=== PATIENT | female | born 1950 | race Caucasian/White ===

== ENCOUNTER 2021-11-28 14:10 | Inpatient (IN) | payer MEDICARE ==
[~2021-11-28] VITALS: Ht 170.2 cm; Wt 109.1 kg
[~2021-11-28 14:10] MED LIST: ATOR40TA71 PO; FLUO40CA10 PO; LISI1TAB51 PO
[2021-11-28 14:37] LABS: BASOPHILS % (AUTO) 0.4 % (0-1); EOSINOPHILS % (AUTO) 0.1 % (0-6); HEMATOCRIT 45.6 % (35.0-45.0); HEMOGLOBIN 15.2 g/dl (12.0-16.0); LYMPHOCYTES # (AUTO) 0.9 X10'3 (1.1-4.8); LYMPHOCYTES % (AUTO) 13.2 % (21-51); MEAN CORPUSCULAR HEMOGLOBIN 31.7 PG (27.0-31.0); MEAN CORPUSCULAR HGB CONC 33.4 g/dL (33.0-36.5); MEAN CORPUSCULAR VOLUME 94.8 FL (78-98); MEAN PLATELET VOLUME 8.1 FL (7.4-10.4); MONOCYTES # (AUTO) 0.5 X10'3 (0-0.9); MONOCYTES % (AUTO) 7.4 % (2-12); NEUTROPHILS # (AUTO) 5.3 X10'3 (1.8-7.7); NEUTROPHILS % (AUTO) 78.9 % (42-75); PLATELET COUNT 208 X10'3 (140-440); RED CELL DISTRIBUTION WIDTH 16.4 % (11.5-14.5); WHITE BLOOD COUNT 6.7 X10'3 (4.5-11.0)
[2021-11-28 14:49] LABS: D-DIMER 1.17 MG/L FEU (0-0.50)
[2021-11-28 14:51] LABS: ALANINE AMINOTRANSFERASE 18 U/L (12-78); ALBUMIN 3.5 G/DL (3.4-5.0); ALBUMIN/GLOBULIN RATIO 0.9 (1.1-1.5); ALKALINE PHOSPHATASE 110 IU/L (46-116); ANION GAP 11 (8-16); ASPARTATE AMINO TRANSFERASE 36 U/L (10-37); BILIRUBIN,TOTAL 1.3 MG/DL (0.1-1.0); BLOOD UREA NITROGEN 13 MG/DL (7-18); BUN/CREATININE RATIO 13.1 (6.6-38.0); CALCIUM 9.2 MG/DL (8.5-10.1); CHLORIDE 86 MMOL/L (99-107); CREATININE 0.99 MG/DL (0.40-0.90); GLUCOSE 96 MG/DL (70-104); POTASSIUM 3.2 MMOL/L (3.5-5.1); SODIUM 128 MMOL/L (135-145); TOTAL CARBON DIOXIDE 30.6 MMOL/L (24-32); TOTAL PROTEIN 7.3 G/DL (6.4-8.2); eGFR 55 ML/MIN
[2021-11-28] MEDS ORDERED: furosemide 10 MG/1 ML 10ml inj IV ONE (14:55)
[2021-11-28] MEDS ORDERED: diltiazem 5mg/ml 5ml inj. IV ONE ×2 (14:55→18:25)
[2021-11-28] MEDS ORDERED: potassium Cl 20 mEq SR tablet PO STA (15:28)
[2021-11-28] MEDS ORDERED: TETanus/Pertussis (Acell)/Diphther VAC/PF (Tdap-Adult) 0.5ml syringe IMVAC ONE (15:30)
[2021-11-28] MEDS ORDERED: iohexol 350MG/ML 100ml bottle IV ONE (16:04)
--- NOTE | 2021-11-28 17:32 | NUR ---
2nd troponin 89
--- NOTE | 2021-11-28 18:44 | NUR ---
Recycled blood pressure during cardizem administration. Pt has recieved about 10mg of cardizem and blood pressure reading of 77/63 by auto cuff. Adult size cuff located on the left forearm. Cuff repositioned to left upper arm. Cycled blood pressure, reading of 85/62. Pt pink, alert, no acute/resp distress. Advised ERP. Will hold cardizem. Provider states he will order digoxin after he speaks with the hospitalist.
--- NOTE | 2021-11-28 18:51 | NUR ---
Pt pink, alert, no acute/resp distress. Repeat blood pressure 97/53.
[2021-11-28] MEDS ORDERED: digoxin 250mcg/ml 2ml ampule IV ONE ×2 (19:20→20:30)
[2021-11-28 19:50] LABS: CLARITY,URINE CLEAR (Clear); COLOR,URINE YELLOW (Yellow); GLUCOSE, URINE NEGATIVE (Neg); KETONES,URINE NEGATIVE (Neg); LEUKOCYTE ESTERASE ,URINE NEGATIVE (Neg); NITRITES, URINE NEGATIVE (Neg); OCCULT BLOOD,URINE NEGATIVE (Neg); PH,URINE 6.5 (4.8-8.0); PROTEIN,URINE NEGATIVE (Neg); UROBILINOGEN,URINE 0.2 E.U/dL (0.2-1.0)
[2021-11-28 19:54] LABS: UA COLLECTION TYPE CLN CATCH MIDSTREAM
[2021-11-28] MEDS ORDERED: morphine 2 MG/ML inj. syringe IV PRN ×2 (20:10)
[2021-11-28] MEDS ORDERED: magnesium 2GM in 50ml NS 50 ML IV PRN (20:10)
[2021-11-28] MEDS ORDERED: acetaminophen 325mg tablet PO PRN ×2 (20:10)
[2021-11-28] MEDS ORDERED: ondansetron/PF 4mg/2ml inj IV PRN (20:10)
[2021-11-28] MEDS ORDERED: magnesium 4gm in 100ml NS 100 ML IV PRN (20:10)
[2021-11-28] MEDS ORDERED: magnesium hydroxide 30ml (MOM) UD suspension PO PRN (20:10)
[2021-11-28] MEDS ORDERED: mag hydrox/Alum hydrox/simeth 30ml oral suspension PO PRN (20:10)
[2021-11-28] MEDS ORDERED: potassium Cl 20 mEq SR tablet PO PRN (20:10)
[2021-11-28] MEDS ORDERED: magnesium Cl slow-release 64mg tablet PO PRN (20:10)
[2021-11-28] MEDS ORDERED: potassium CL 10mEq/100ml bag 100 ML IV PRN (20:10)
[2021-11-28 20:30] LABS: MAGNESIUM 1.9 MG/DL (1.5-2.4)
[2021-11-28] MEDS ORDERED: enoxaparin 30mg/0.3ml syringe SUBCUT ONE (20:30)
[2021-11-28] MEDS ORDERED: enoxaparin 80mg/0.8ml syringe SUBCUT ONE (20:30)
[2021-11-28 20:31] LABS: POTASSIUM 3.5 MMOL/L (3.5-5.1)
[2021-11-28] MEDS: furosemide 20 MG/2 ML vial IV SCH ×2 (20:52→21:05)
[2021-11-28] MEDS: diltiazem 30mg tablet PO SCH ×2 (21:00→21:08)
[2021-11-28 22:00] VITALS: BP 103/52
--- NOTE | 2021-11-28 22:00 | NUR ---
Patient transfer from ER in a stable condition vital signs stable oriented to room bed in lower position will continue to monitor and report changes
[2021-11-29] VITALS (8 sets, daily range): BP systolic 75–108; BP diastolic 49–84
[2021-11-29 06:15] LABS: BASOPHILS % (AUTO) 0.7 % (0-1); EOSINOPHILS % (AUTO) 0.3 % (0-6); HEMATOCRIT 42.2 % (35.0-45.0); LYMPHOCYTES # (AUTO) 1.3 X10'3 (1.1-4.8); LYMPHOCYTES % (AUTO) 18.3 % (21-51); MEAN CORPUSCULAR HEMOGLOBIN 31.3 PG (27.0-31.0); MEAN CORPUSCULAR HGB CONC 33.2 g/dL (33.0-36.5); MEAN CORPUSCULAR VOLUME 94.1 FL (78-98); MEAN PLATELET VOLUME 8.5 FL (7.4-10.4); MONOCYTES # (AUTO) 0.9 X10'3 (0-0.9); MONOCYTES % (AUTO) 13.3 % (2-12); NEUTROPHILS # (AUTO) 4.7 X10'3 (1.8-7.7); NEUTROPHILS % (AUTO) 67.4 % (42-75); PLATELET COUNT 196 X10'3 (140-440); RED BLOOD COUNT 4.48 X10'6 (4.20-5.60)
[2021-11-29 06:31] LABS: ALBUMIN 2.8 G/DL (3.4-5.0); ANION GAP 7 (8-16); BLOOD UREA NITROGEN 12 MG/DL (7-18); CALCIUM 8.8 MG/DL (8.5-10.1); CHLORIDE 90 MMOL/L (99-107); CHOL/HDL RATIO 2.1 (0.00-4.99); CHOLESTEROL 92 MG/DL (0-200); CREATININE 0.92 MG/DL (0.40-0.90); GLUCOSE 72 MG/DL (70-104); HDL CHOLESTEROL 44 MG/DL (35-60); LDL CHOLESTEROL 34 MG/DL (50-100); MAGNESIUM 1.7 MG/DL (1.5-2.4); POTASSIUM 3.2 MMOL/L (3.5-5.1); SODIUM 131 MMOL/L (135-145); TOTAL CARBON DIOXIDE 34.3 MMOL/L (24-32); TRIGLYCERIDES 70 MG/DL (20-135); eGFR 60 ML/MIN
--- NOTE | 2021-11-29 06:42 | NUR ---
Problems reprioritized. Patient report given, questions answered & plan of care reviewed with Nick CARRILLO .
[2021-11-29] MEDS: K and/or MAG REPLACEMENT MC SCH ×2 (08:00→20:00)
[2021-11-29] MEDS: diltiazem 30mg tablet PO SCH (08:00)
[2021-11-29] MEDS ORDERED: amiodarone 150mg/dext, iso-os 100 ML IV ONE (08:45)
[2021-11-29] MEDS: FLUoxetine 20mg capsule PO SCH (08:56)
[2021-11-29] MEDS: atorvastatin 20mg tablet PO SCH (08:57)
[2021-11-29] MEDS: docusate sod 100mg capsule PO SCH ×2 (08:57→20:31)
[2021-11-29] MEDS: potassium Cl 20 mEq SR tablet PO PRN ×3 (08:57→16:53)
[2021-11-29] MEDS: amiodarone/D5 360MG/200ML BAG 200 ML IV SCH ×3 (10:00→12:48)
[2021-11-29 12:42] LABS: HEMOGLOBIN A1C 5.5 % (4.5-6.2)
[2021-11-29] MEDS: apixaban 5mg tablet PO SCH ×2 (13:14→20:31)
[2021-11-29] MEDS ORDERED: ondansetron 4mg rapidly disintigrating tab PO PRN (16:00)
[2021-11-29] MEDS: furosemide 20 MG/2 ML vial IV SCH (20:00)
[2021-11-30] MEDS: amiodarone/D5 360MG/200ML BAG 200 ML IV SCH ×2 (01:12→09:01)
--- NOTE | 2021-11-30 02:13 | NUR ---
This is a 71-year-old female, admitted 11/28/2021, day 2 of hospitalization, full code, NDA, no isolation, no restraints. Pt presents, c/o bilateral ankle swelling for about 3 days. She denies any shortness of breath, coughing. Denies any chest pain, chest tightness. Denies any orthopnea or PND. Denies any palpitations, fever or chills. She was found to be in AFib when she arrived here in AFib with RVR. She states that she has never had problems with AFib in the past. Currently, Pt is afebrile, AAO times 4, follows all commands, moves all extremities with notable generalized weakness. Telemetry Box #7, Amiodarone Gtt .5mg (16.65 ml's hr), AF, 100-130, good pulses, BLLE +3 edema. CXR shows mild cardiomegaly BNP 3521. ECHO 11/28/2021 EF 30%. IVF infusing via LA. Lasix was held tonight for BP 80/60, per Dr Schulz. RR 18 PO 98% RA, Breath sounds, diminished equal symmetrical non labored. 11/28/2021 CTA shows mils calcification, no PE. Large round obese abdomen, soft non tender, heart healthy diet. No BM. Pt incontinent of urine, Purewick in place. BLLE red with small scabbed over areas. Pt remains safe. continue to monitor.
[2021-11-30 03:00] VITALS: BP 119/74
[2021-11-30 06:00] VITALS: BP 100/68
[2021-11-30 07:01] LABS: BASOPHILS % (AUTO) 0.5 % (0-1); EOSINOPHILS % (AUTO) 0.1 % (0-6); HEMOGLOBIN 14.4 g/dl (12.0-16.0); LYMPHOCYTES # (AUTO) 1.2 X10'3 (1.1-4.8); MEAN CORPUSCULAR HGB CONC 33.5 g/dL (33.0-36.5); MEAN CORPUSCULAR VOLUME 95.5 FL (78-98); MEAN PLATELET VOLUME 8.1 FL (7.4-10.4); MONOCYTES # (AUTO) 0.8 X10'3 (0-0.9); MONOCYTES % (AUTO) 12.4 % (2-12); NEUTROPHILS # (AUTO) 4.5 X10'3 (1.8-7.7); PLATELET COUNT 190 X10'3 (140-440); WHITE BLOOD COUNT 6.5 X10'3 (4.5-11.0)
[2021-11-30 07:12] LABS: ALBUMIN 2.8 G/DL (3.4-5.0); ANION GAP 4 (8-16); BLOOD UREA NITROGEN 11 MG/DL (7-18); BUN/CREATININE RATIO 15.3 (6.6-38.0); CALCIUM 8.4 MG/DL (8.5-10.1); CHLORIDE 93 MMOL/L (99-107); CREATININE 0.72 MG/DL (0.40-0.90); GLUCOSE 100 MG/DL (70-104); POTASSIUM 3.6 MMOL/L (3.5-5.1); SODIUM 131 MMOL/L (135-145); TOTAL CARBON DIOXIDE 33.6 MMOL/L (24-32); eGFR 80 ML/MIN
[2021-11-30] MEDS: K and/or MAG REPLACEMENT MC SCH ×2 (07:44→18:57)
[2021-11-30] MEDS: docusate sod 100mg capsule PO SCH ×2 (07:51→20:00)
[2021-11-30] MEDS: FLUoxetine 20mg capsule PO SCH (07:51)
[2021-11-30] MEDS: furosemide 20 MG/2 ML vial IV SCH ×2 (07:51→21:00)
[2021-11-30] MEDS: atorvastatin 20mg tablet PO SCH (07:51)
[2021-11-30] MEDS: apixaban 5mg tablet PO SCH ×2 (07:51→21:00)
[2021-11-30 08:11] LABS: MAGNESIUM 1.6 MG/DL (1.5-2.4)
[2021-11-30 11:00] VITALS: BP 86/65
[2021-11-30] MEDS ORDERED: digoxin 250mcg/ml 2ml ampule IV ONE ×2 (11:00→15:00)
[2021-11-30] MEDS: diltiazem 30mg tablet PO SCH ×2 (13:37→20:00)
[2021-11-30 15:00] VITALS: BP 119/55
[2021-11-30 18:00] VITALS: BP 112/89
[2021-11-30 22:00] VITALS: BP 91/67
--- NOTE | 2021-11-30 22:38 | NUR ---
RN received report at 1820. pt a&o x4. admitted with afib RVR s/p amiodarone gtt today. given PO Cardizem, loading digoxin and repeat dose x1. Handoff RN noted x1 additional dose 4H past last dig dose if HR remained elevated. MD murray up at bedside, d/t pt low ef -30%. and HR 90s-110s. states to hold off on additional dose and pm Cardizem dose until followed up with cardiology. MD Cortes office called/ no answer. MD Murray states to contact MD Peter, however not construction grip. Night hospitalist MD Schulz, called and made aware of situation. states to hold off on PM Cardizem dose and to monitor HR. also made aware PM Lasix dose held d/t low BP 91/62(72). Per MD Schulz if AM systolic BP less than 100, hold 2am cardizem dose. current HR 90s-100s. BP 91/62. pt remains A&Ox4, asymptomatic. wctm
[2021-12-01] VITALS (10 sets, daily range): BP systolic 85–120; BP diastolic 42–75
[2021-12-01] MEDS: diltiazem 30mg tablet PO SCH ×2 (03:05→08:43)
--- NOTE | 2021-12-01 07:07 | NUR ---
Patient in room PCU 3024. I have received report from Bri CARRILLO and had the opportunity to ask questions and assume patient care.
[2021-12-01 07:23] LABS: PLATELET COUNT 190 X10'3 (140-440)
[2021-12-01 07:26] LABS: BASOPHILS % (AUTO) 0.4 % (0-1); EOSINOPHILS % (AUTO) 0.5 % (0-6); LYMPHOCYTES # (AUTO) 1.1 X10'3 (1.1-4.8); LYMPHOCYTES % (AUTO) 16.6 % (21-51); MEAN CORPUSCULAR HEMOGLOBIN 31.5 PG (27.0-31.0); MEAN CORPUSCULAR HGB CONC 33.2 g/dL (33.0-36.5); MEAN PLATELET VOLUME 8.4 FL (7.4-10.4); MONOCYTES # (AUTO) 0.7 X10'3 (0-0.9); MONOCYTES % (AUTO) 11.1 % (2-12); NEUTROPHILS # (AUTO) 4.7 X10'3 (1.8-7.7); NEUTROPHILS % (AUTO) 71.4 % (42-75); RED BLOOD COUNT 4.74 X10'6 (4.20-5.60); RED CELL DISTRIBUTION WIDTH 16.5 % (11.5-14.5); WHITE BLOOD COUNT 6.6 X10'3 (4.5-11.0)
[2021-12-01 07:42] LABS: ANION GAP 8 (8-16); BLOOD UREA NITROGEN 8 MG/DL (7-18); BUN/CREATININE RATIO 11.1 (6.6-38.0); CHLORIDE 90 MMOL/L (99-107); CREATININE 0.72 MG/DL (0.40-0.90); GLUCOSE 94 MG/DL (70-104); SODIUM 131 MMOL/L (135-145); TOTAL CARBON DIOXIDE 32.6 MMOL/L (24-32); eGFR 80 ML/MIN
[2021-12-01 07:43] LABS: ALBUMIN 2.6 G/DL (3.4-5.0); CALCIUM 8.6 MG/DL (8.5-10.1); MAGNESIUM 1.5 MG/DL (1.5-2.4); POTASSIUM 3.5 MMOL/L (3.5-5.1)
[2021-12-01] MEDS ORDERED: digoxin 250mcg (0.25mg) tablet PO SCH (08:00)
[2021-12-01] MEDS: atorvastatin 20mg tablet PO SCH (08:43)
[2021-12-01] MEDS: apixaban 5mg tablet PO SCH ×2 (08:43→20:22)
[2021-12-01] MEDS: docusate sod 100mg capsule PO SCH ×2 (08:43→20:00)
[2021-12-01] MEDS: furosemide 20 MG/2 ML vial IV SCH ×2 (08:44→20:00)
[2021-12-01] MEDS: FLUoxetine 20mg capsule PO SCH (08:44)
[2021-12-01] MEDS: K and/or MAG REPLACEMENT MC SCH ×2 (08:59→20:00)
[2021-12-01] MEDS ORDERED: diltiazem 30mg tablet PO SCH (14:00)
--- NOTE | 2021-12-01 18:26 | NUR ---
Report to night nurse
[2021-12-01] MEDS: metoprolol succinate 25mg (24-HOUR) SR. Tablet PO SCH (20:00)
[2021-12-01] MEDS: sacubitril/valsartan 24mg-26mg tablet PO SCH (20:00)
[2021-12-01] MEDS: amiodarone 200mg tablet PO SCH (20:25)
[2021-12-02] VITALS (7 sets, daily range): BP systolic 80–115; BP diastolic 42–73
--- NOTE | 2021-12-02 06:21 | NUR ---
RECEIVED REPORT FROM CAMERA MAKER.
[2021-12-02 06:53] LABS: BASOPHILS % (AUTO) 0.6 % (0-1); EOSINOPHILS % (AUTO) 0.4 % (0-6); HEMOGLOBIN 14.1 g/dl (12.0-16.0); LYMPHOCYTES # (AUTO) 0.9 X10'3 (1.1-4.8); LYMPHOCYTES % (AUTO) 17.1 % (21-51); MEAN CORPUSCULAR HGB CONC 32.9 g/dL (33.0-36.5); MEAN CORPUSCULAR VOLUME 94.3 FL (78-98); MEAN PLATELET VOLUME 8.4 FL (7.4-10.4); MONOCYTES # (AUTO) 0.8 X10'3 (0-0.9); MONOCYTES % (AUTO) 15.6 % (2-12); NEUTROPHILS # (AUTO) 3.4 X10'3 (1.8-7.7); NEUTROPHILS % (AUTO) 66.3 % (42-75); PLATELET COUNT 163 X10'3 (140-440); RED BLOOD COUNT 4.56 X10'6 (4.20-5.60); RED CELL DISTRIBUTION WIDTH 16.3 % (11.5-14.5); WHITE BLOOD COUNT 5.1 X10'3 (4.5-11.0)
[2021-12-02 07:03] LABS: ALBUMIN 2.5 G/DL (3.4-5.0); ANION GAP 7 (8-16); BLOOD UREA NITROGEN 6 MG/DL (7-18); BUN/CREATININE RATIO 9.8 (6.6-38.0); CALCIUM 8.3 MG/DL (8.5-10.1); CHLORIDE 94 MMOL/L (99-107); CREATININE 0.61 MG/DL (0.40-0.90); GLUCOSE 87 MG/DL (70-104); MAGNESIUM 1.6 MG/DL (1.5-2.4); POTASSIUM 3.4 MMOL/L (3.5-5.1); SODIUM 134 MMOL/L (135-145); TOTAL CARBON DIOXIDE 33.4 MMOL/L (24-32); eGFR > 90 ML/MIN
[2021-12-02] MEDS: FLUoxetine 20mg capsule PO SCH (07:17)
[2021-12-02] MEDS: atorvastatin 20mg tablet PO SCH (07:17)
[2021-12-02] MEDS: amiodarone 200mg tablet PO SCH ×2 (07:17→20:00)
[2021-12-02] MEDS: docusate sod 100mg capsule PO SCH ×2 (07:17→20:00)
[2021-12-02] MEDS: furosemide 20 MG/2 ML vial IV SCH ×2 (07:17→20:00)
[2021-12-02] MEDS: apixaban 5mg tablet PO SCH ×2 (07:17→20:26)
[2021-12-02] MEDS: metoprolol succinate 25mg (24-HOUR) SR. Tablet PO SCH (07:17)
[2021-12-02] MEDS: sacubitril/valsartan 24mg-26mg tablet PO SCH ×2 (07:17→20:00)
[2021-12-02 07:27] LABS: TOTAL CELLS COUNTED 100
[2021-12-02 07:28] LABS: ANISOCYTOSIS 1+; PLATELET ESTIMATE NORMAL
[2021-12-02] MEDS: K and/or MAG REPLACEMENT MC SCH ×2 (08:00→20:00)
[2021-12-02] MEDS ORDERED: potassium CL 10mEq/100ml bag 100 ML IV PRN (08:30)
[2021-12-02] MEDS ORDERED: magnesium 4gm in 100ml NS 100 ML IV PRN (08:30)
[2021-12-02] MEDS ORDERED: magnesium Cl slow-release 64mg tablet PO PRN (08:30)
[2021-12-02] MEDS ORDERED: magnesium 2GM in 50ml NS 50 ML IV PRN (08:30)
[2021-12-02] MEDS ORDERED: potassium Cl 20 mEq SR tablet PO PRN (08:30)
--- NOTE | 2021-12-02 09:04 | NUR ---
Initial: Pt admitted w/ acute systolic CHF and Afib per EMR. Currently on Heart Healthy diet w/ avg intake 50% of meals partially meeting needs. Pt could benefit from Ensure Enlive BID to help meet nutrient needs. Also recommend liberalizing to Regular or 2gNa diet given lipids mostly WNL LBM 4/3 receiving routine colace. Will continue to monitor and make recommendations as appropriate. Recs: 1. Liberalize to Regular diet or 2gNa diet, lipids mostly WNL 2. Ensure Enlive BIDBD; pending MD verification 3. Bowel care per rx 4. Scaled wts Addendum: 12/02/21 at [address] Amended: Links added.
[2021-12-02] MEDS: potassium Cl 20 mEq SR tablet PO PRN ×2 (10:18→20:37)
[2021-12-02] MEDS: nystatin 15 GM powder TP SCH ×2 (15:24→20:27)
[2021-12-02] MEDS ORDERED: lactose-reduced food (Ensure Enlive) - 237ml bottle PO SCH (17:30)
--- NOTE | 2021-12-02 18:11 | NUR ---
Problems reprioritized. Patient report given, questions answered & plan of care reviewed with Lilia CARRILLO.
[2021-12-03 02:00] VITALS: BP 86/55
--- NOTE | 2021-12-03 06:10 | NUR ---
Patient in room PCU 3024. I have received report from Lilia CARRILLO and had the opportunity to ask questions and assume patient care.
[2021-12-03 06:52] LABS: MEAN CORPUSCULAR HGB CONC 33.2 g/dL (33.0-36.5); MONOCYTES # (AUTO) 0.8 X10'3 (0-0.9); PLATELET COUNT 182 X10'3 (140-440)
[2021-12-03 06:53] LABS: BASOPHILS # (AUTO) 0.1 X10'3 (0-0.2); BASOPHILS % (AUTO) 0.9 % (0-1); EOSINOPHILS % (AUTO) 0.8 % (0-6); HEMATOCRIT 45.3 % (35.0-45.0); HEMOGLOBIN 15.1 g/dl (12.0-16.0); LYMPHOCYTES % (AUTO) 19.1 % (21-51); MEAN CORPUSCULAR HEMOGLOBIN 31.6 PG (27.0-31.0); MEAN CORPUSCULAR VOLUME 95.1 FL (78-98); MEAN PLATELET VOLUME 8.2 FL (7.4-10.4); MONOCYTES % (AUTO) 14.3 % (2-12); NEUTROPHILS # (AUTO) 3.5 X10'3 (1.8-7.7); NEUTROPHILS % (AUTO) 64.9 % (42-75); RED BLOOD COUNT 4.77 X10'6 (4.20-5.60); RED CELL DISTRIBUTION WIDTH 16.1 % (11.5-14.5); WHITE BLOOD COUNT 5.4 X10'3 (4.5-11.0)
[2021-12-03 07:07] LABS: ALBUMIN 2.3 G/DL (3.4-5.0); ANION GAP 6 (8-16); BLOOD UREA NITROGEN 11 MG/DL (7-18); BUN/CREATININE RATIO 17.7 (6.6-38.0); CALCIUM 8.2 MG/DL (8.5-10.1); CHLORIDE 96 MMOL/L (99-107); CREATININE 0.62 MG/DL (0.40-0.90); GLUCOSE 94 MG/DL (70-104); POTASSIUM 3.7 MMOL/L (3.5-5.1); SODIUM 134 MMOL/L (135-145); TOTAL CARBON DIOXIDE 31.9 MMOL/L (24-32); eGFR > 90 ML/MIN
[2021-12-03 07:21] VITALS: BP 93/56
[2021-12-03] MEDS: metoprolol succinate 25mg (24-HOUR) SR. Tablet PO SCH (07:26)
[2021-12-03] MEDS: furosemide 20 MG/2 ML vial IV SCH ×2 (07:26→08:00)
[2021-12-03] MEDS: sacubitril/valsartan 24mg-26mg tablet PO SCH (07:32)
[2021-12-03] MEDS: apixaban 5mg tablet PO SCH (07:33)
[2021-12-03] MEDS: atorvastatin 20mg tablet PO SCH (07:33)
[2021-12-03] MEDS: amiodarone 200mg tablet PO SCH (07:33)
[2021-12-03] MEDS: docusate sod 100mg capsule PO SCH (07:33)
[2021-12-03] MEDS: FLUoxetine 20mg capsule PO SCH (07:33)
[2021-12-03] MEDS: nystatin 15 GM powder TP SCH (07:39)
[2021-12-03] MEDS: K and/or MAG REPLACEMENT MC SCH (07:42)
[2021-12-03 08:00] VITALS: BP_SYST 90; BP_SYST 94; BP_DIAS 60; BP_DIAS 62
[2021-12-03 11:00] VITALS: BP 94/62
--- NOTE | 2021-12-03 11:30 | NUR ---
Patient in room PCU 3024. I have received report from GERARDO TRIPATHI, and had the opportunity to ask questions and assume patient care.
--- NOTE | 2021-12-03 11:36 | NUR ---
Problems reprioritized. Patient report given, questions answered & plan of care reviewed with Florence CARRILLO.
[2021-12-03 15:00] VITALS: BP 94/54
--- NOTE | 2021-12-03 17:18 | NUR ---
PT STABLE FOR TRANSFER PER MD. BELONGINGS AND APPROPRIATE PAPERWORK GATHERED AND SENT WITH PT. HAND OFF GIVEN TO GERARDO MOSES AT [facility]. PT TRANSFERRED BY LUANNE CARGO. PIV AND TELE BOX REMOVED.
== END 2021-12-03 17:14 | DRG 291 ==
LOC: ER 14:10 → ED HOLD 20:15 → PCU 3S 22:05
PROVIDERS: ADMIT Internal Medicine; ATTEND Internal Medicine
PROC: B32T1ZZ Computerized Tomography (CT Scan) of Left Pulmonary Artery using Low Osmolar Contrast (ICD-10-PCS; principal; 2021-11-28)
PROC: B3201ZZ Computerized Tomography (CT Scan) of Thoracic Aorta using Low Osmolar Contrast (ICD-10-PCS; 2021-11-28)
PROC: B32S1ZZ Computerized Tomography (CT Scan) of Right Pulmonary Artery using Low Osmolar Contrast (ICD-10-PCS; 2021-11-28)
DX: I11.0 Hypertensive heart disease with heart failure (principal); I50.23 Acute on chronic systolic (congestive) heart failure; E87.1 Hypo-osmolality and hyponatremia; I48.91 Unspecified atrial fibrillation; Z20.822 Contact with and (suspected) exposure to COVID-19; E78.5 Hyperlipidemia, unspecified; E78.00 Pure hypercholesterolemia, unspecified; F17.210 Nicotine dependence, cigarettes, uncomplicated; S80.811A Abrasion, right lower leg, initial encounter; X58.XXXA Exposure to other specified factors, initial encounter; I48.0 Paroxysmal atrial fibrillation; K44.9 Diaphragmatic hernia without obstruction or gangrene; Z96.649 Presence of unspecified artificial hip joint; F32.A Depression, unspecified; R94.6 Abnormal results of thyroid function studies; E87.6 Hypokalemia; Z79.01 Long term (current) use of anticoagulants; Z28.21 Immunization not carried out because of patient refusal; Z79.899 Other long term (current) drug therapy; Y93.89 Activity, other specified; Y92.89 Other specified places as the place of occurrence of the external cause; Y99.8 Other external cause status
CPT/HCPCS: 36415; 71045; 71275; 80048; 80053; 80061; 80162; 81003; 83036; 83735; 83880; 84132; 84443; 84484; 85007; 85025; 85379; 87081; 87635; 90715; 93005; 93306; 97161; 97530; 99285; G0378; J0282; J1160; J1650; J1940; J3490; Q9967

== ENCOUNTER 2021-12-17 09:06 | Emergency (ER) | payer MEDICARE ==
[~2021-12-17] VITALS: Ht 170.2 cm; Wt 114.0 kg
[2021-12-17 09:43] LABS: BASOPHILS % (AUTO) 0.9 % (0-1); EOSINOPHILS % (AUTO) 0.4 % (0-6); HEMOGLOBIN 14.7 g/dl (12.0-16.0); LYMPHOCYTES # (AUTO) 0.8 X10'3 (1.1-4.8); LYMPHOCYTES % (AUTO) 14.9 % (21-51); MEAN CORPUSCULAR HEMOGLOBIN 30.6 PG (27.0-31.0); MEAN CORPUSCULAR HGB CONC 32.7 g/dL (33.0-36.5); MEAN CORPUSCULAR VOLUME 93.8 FL (78-98); MEAN PLATELET VOLUME 9.1 FL (7.4-10.4); MONOCYTES # (AUTO) 0.5 X10'3 (0-0.9); NEUTROPHILS # (AUTO) 3.9 X10'3 (1.8-7.7); NEUTROPHILS % (AUTO) 74.8 % (42-75); PLATELET COUNT 220 X10'3 (140-440); RED CELL DISTRIBUTION WIDTH 16.5 % (11.5-14.5); WHITE BLOOD COUNT 5.2 X10'3 (4.5-11.0)
[2021-12-17 10:20] LABS: ALANINE AMINOTRANSFERASE 15 U/L (12-78); ALBUMIN 2.7 G/DL (3.4-5.0); ALBUMIN/GLOBULIN RATIO 0.7 (1.1-1.5); ALKALINE PHOSPHATASE 76 IU/L (46-116); ASPARTATE AMINO TRANSFERASE 25 U/L (10-37); BLOOD UREA NITROGEN 11 MG/DL (7-18); BUN/CREATININE RATIO 13.1 (6.6-38.0); CALCIUM 8.5 MG/DL (8.5-10.1); CREATININE 0.84 MG/DL (0.40-0.90); GLUCOSE 102 MG/DL (70-104); POTASSIUM 3.4 MMOL/L (3.5-5.1); SODIUM 138 MMOL/L (135-145); TOTAL CARBON DIOXIDE 31.3 MMOL/L (24-32); TOTAL PROTEIN 6.4 G/DL (6.4-8.2); eGFR 67 ML/MIN
[2021-12-17 10:26] LABS: ANION GAP 6 (8-16)
[2021-12-17 10:37] LABS: CLARITY,URINE CLOUDY (Clear); GLUCOSE, URINE NEGATIVE (Neg); KETONES,URINE TRACE mg/dl (Neg); LEUKOCYTE ESTERASE ,URINE NEGATIVE (Neg); NITRITES, URINE NEGATIVE (Neg); OCCULT BLOOD,URINE SMALL (Neg); PH,URINE 5.5 (4.8-8.0); PROTEIN,URINE 30 mg/dl (Neg)
[2021-12-17 10:48] LABS: COLOR,URINE AMBER (Yellow); UA COLLECTION TYPE STRAIGHT CATH
[2021-12-17 10:55] LABS: MUCUS STRANDS MANY /LPF (Neg); SQUAMOUS EPITHELIAL CELL,UR FEW /LPF (FEW)
[2021-12-17 10:56] LABS: BACTERIA,URINE FEW /HPF (Neg); WBC,URINE 0-4 /HPF (0-4)
[2021-12-17] MEDS ORDERED: AMIO200T62 PO (10:58)
[2021-12-17] MEDS ORDERED: MAG-54 PO (10:58)
[2021-12-17] MEDS ORDERED: RIVA20TA PO (10:58)
[2021-12-17] MEDS ORDERED: LOPE2CAP PO (10:58)
[2021-12-17] MEDS ORDERED: FURO-150 PO (10:58)
[2021-12-17] MEDS ORDERED: CEPH250T PO (10:58)
[2021-12-17] MEDS ORDERED: QUELT PO (10:58)
[2021-12-17] MEDS ORDERED: SACU1TAB (10:58)
[2021-12-17] MEDS ORDERED: DOCU-148 PO (10:58)
[2021-12-17] MEDS ORDERED: LOP12.5T PO (10:58)
[2021-12-17] MEDS ORDERED: MELA3TAB70 PO (10:58)
[2021-12-17 12:34] LABS: CHLORIDE 101 MMOL/L (99-107)
[2021-12-17 13:48] VITALS: BP 102/82
== END 2021-12-17 13:50 | disposition home or self-care (01) ==
LOC: ER 09:07
DX: R53.1 Weakness (principal); I48.91 Unspecified atrial fibrillation; I11.0 Hypertensive heart disease with heart failure; I50.9 Heart failure, unspecified; E78.00 Pure hypercholesterolemia, unspecified; F32.A Depression, unspecified; Z72.89 Other problems related to lifestyle; Z79.899 Other long term (current) drug therapy; Z79.2 Long term (current) use of antibiotics; W19.XXXA Unspecified fall, initial encounter; Y93.89 Activity, other specified; Y92.89 Other specified places as the place of occurrence of the external cause; Y99.8 Other external cause status
CPT/HCPCS: 36415; 71045; 80053; 81001; 84484; 85025; 93005; 99285

== ENCOUNTER 2022-01-07 13:04 | Inpatient (IN) | payer MEDICARE ==
[~2022-01-07] VITALS: Ht 170.2 cm; Wt 113.6 kg
[~2022-01-07 13:04] MED LIST changes: +AMIO200T62 PO; +CEPH250T PO; +DOCU-148 PO; +FURO-150 PO; -LISI1TAB51 PO; +LOP12.5T PO; +LOPE2CAP PO; +MAG-54 PO; +MELA3TAB70 PO; +QUELT PO; +RIVA20TA PO; +SACU1TAB PO
[2022-01-07 19:27] LABS: BASOPHILS % (AUTO) 0.6 % (0-1); EOSINOPHILS % (AUTO) 0.4 % (0-6); HEMATOCRIT 43.7 % (35.0-45.0); HEMOGLOBIN 14.5 g/dl (12.0-16.0); LYMPHOCYTES # (AUTO) 1.6 X10'3 (1.1-4.8); LYMPHOCYTES % (AUTO) 24.7 % (21-51); MEAN CORPUSCULAR HEMOGLOBIN 31.5 PG (27.0-31.0); MEAN CORPUSCULAR HGB CONC 33.2 g/dL (33.0-36.5); MEAN CORPUSCULAR VOLUME 94.9 FL (78-98); MEAN PLATELET VOLUME 8.5 FL (7.4-10.4); MONOCYTES # (AUTO) 0.5 X10'3 (0-0.9); MONOCYTES % (AUTO) 8.6 % (2-12); NEUTROPHILS # (AUTO) 4.2 X10'3 (1.8-7.7); NEUTROPHILS % (AUTO) 65.7 % (42-75); PLATELET COUNT 215 X10'3 (140-440); WHITE BLOOD COUNT 6.4 X10'3 (4.5-11.0)
[2022-01-07 19:42] LABS: ALANINE AMINOTRANSFERASE 13 U/L (12-78); ALBUMIN 3.2 G/DL (3.4-5.0); ALBUMIN/GLOBULIN RATIO 0.8 (1.1-1.5); ALKALINE PHOSPHATASE 97 IU/L (46-116); ANION GAP 7 (8-16); ASPARTATE AMINO TRANSFERASE 26 U/L (10-37); BILIRUBIN,TOTAL 0.8 MG/DL (0.1-1.0); BLOOD UREA NITROGEN 17 MG/DL (7-18); BUN/CREATININE RATIO 22.1 (6.6-38.0); CALCIUM 9.2 MG/DL (8.5-10.1); CHLORIDE 104 MMOL/L (99-107); CREATININE 0.77 MG/DL (0.40-0.90); GLUCOSE 95 MG/DL (70-104); POTASSIUM 3.6 MMOL/L (3.5-5.1); SODIUM 143 MMOL/L (135-145); TOTAL CARBON DIOXIDE 31.6 MMOL/L (24-32); TOTAL PROTEIN 7.2 G/DL (6.4-8.2); eGFR 74 ML/MIN
[2022-01-07] MEDS ORDERED: morphine 2 MG/ML inj. syringe IV PRN ×2 (21:40)
[2022-01-07] MEDS ORDERED: acetaminophen 325mg tablet PO PRN ×2 (21:40)
[2022-01-07] MEDS ORDERED: magnesium hydroxide 30ml (MOM) UD suspension PO PRN (21:40)
[2022-01-07] MEDS ORDERED: HYDROcodone/acetaminophen 5mg/325mg tablet PO PRN (21:40)
[2022-01-07] MEDS ORDERED: ondansetron/PF 4mg/2ml inj IV PRN (21:40)
[2022-01-07] MEDS ORDERED: mag hydrox/Alum hydrox/simeth 30ml oral suspension PO PRN (21:40)
[2022-01-07 21:58] LABS: CLARITY,URINE SLIGHTLY CLOUDY (Clear); GLUCOSE, URINE NEGATIVE (Neg); KETONES,URINE NEGATIVE (Neg); LEUKOCYTE ESTERASE ,URINE TRACE (Neg); NITRITES, URINE POSITIVE (Neg); OCCULT BLOOD,URINE MODERATE (Neg); PROTEIN,URINE NEGATIVE (Neg); UROBILINOGEN,URINE 0.2 E.U/dL (0.2-1.0)
[2022-01-07 22:01] LABS: COLOR,URINE DARK YELLOW (Yellow); UA COLLECTION TYPE URINAL
[2022-01-07 22:05] LABS: WBC,URINE 30-50 /HPF (0-4)
[2022-01-07 22:06] LABS: BACTERIA,URINE 4+ /HPF (Neg); MUCUS STRANDS FEW /LPF (Neg); RBC,URINE 0-2 /HPF (0-2); SQUAMOUS EPITHELIAL CELL,UR FEW /LPF (FEW); TRANSITIONAL EPI CELLS,URINE FEW /HPF
[2022-01-07 22:11] LABS: URINE AMPHETAMINE SCREEN NEGATIVE (Neg); URINE BARBITUATE SCREEN NEGATIVE (Neg); URINE BENZODIAZEPINES SCREEN NEGATIVE (Neg); URINE CANNABINOID SCREEN NEGATIVE (Neg); URINE COCAINE SCREEN NEGATIVE (Neg); URINE METHADONE SCREEN NEGATIVE (Neg); URINE OPIATE SCREEN NEGATIVE (Neg); URINE PHENCYCLIDINE SCREEN NEGATIVE (Neg)
[2022-01-07 22:43] LABS: CHOL/HDL RATIO 2.5 (0.00-4.99); CHOLESTEROL 114 MG/DL (0-200); HDL CHOLESTEROL 46 MG/DL (35-60); LDL CHOLESTEROL 52 MG/DL (50-100); TRIGLYCERIDES 69 MG/DL (20-135)
[2022-01-08] MEDS ORDERED: IODIXANOL 320 MG/ML INFUS..BTL 100ML IV ONE
[2022-01-08 02:04] LABS: BASOPHILS % (AUTO) 0.5 % (0-1); EOSINOPHILS % (AUTO) 0.5 % (0-6); HEMATOCRIT 40.2 % (35.0-45.0); HEMOGLOBIN 13.2 g/dl (12.0-16.0); LYMPHOCYTES # (AUTO) 1.2 X10'3 (1.1-4.8); LYMPHOCYTES % (AUTO) 19.8 % (21-51); MEAN CORPUSCULAR HEMOGLOBIN 31.6 PG (27.0-31.0); MEAN CORPUSCULAR HGB CONC 32.8 g/dL (33.0-36.5); MEAN CORPUSCULAR VOLUME 96.3 FL (78-98); MEAN PLATELET VOLUME 8.5 FL (7.4-10.4); MONOCYTES # (AUTO) 0.6 X10'3 (0-0.9); MONOCYTES % (AUTO) 10.7 % (2-12); NEUTROPHILS % (AUTO) 68.5 % (42-75); PLATELET COUNT 187 X10'3 (140-440); RED BLOOD COUNT 4.17 X10'6 (4.20-5.60); RED CELL DISTRIBUTION WIDTH 18.2 % (11.5-14.5); WHITE BLOOD COUNT 5.8 X10'3 (4.5-11.0)
[2022-01-08 02:22] LABS: ALBUMIN 2.6 G/DL (3.4-5.0); ANION GAP 8 (8-16); BLOOD UREA NITROGEN 19 MG/DL (7-18); BUN/CREATININE RATIO 24.7 (6.6-38.0); CALCIUM 8.7 MG/DL (8.5-10.1); CHLORIDE 106 MMOL/L (99-107); CHOL/HDL RATIO 2.5 (0.00-4.99); CHOLESTEROL 112 MG/DL (0-200); CREATININE 0.77 MG/DL (0.40-0.90); GLUCOSE 85 MG/DL (70-104); HDL CHOLESTEROL 45 MG/DL (35-60); LDL CHOLESTEROL 52 MG/DL (50-100); POTASSIUM 3.5 MMOL/L (3.5-5.1); SODIUM 145 MMOL/L (135-145); TOTAL CARBON DIOXIDE 31.5 MMOL/L (24-32); TRIGLYCERIDES 66 MG/DL (20-135); eGFR 74 ML/MIN
[2022-01-08] MEDS ORDERED: METO25TA6 PO (03:30)
[2022-01-08] MEDS ORDERED: LOPE2CAP PO (03:30)
[2022-01-08] MEDS: docusate sod 100mg capsule PO SCH ×2 (07:58→20:00)
[2022-01-08] MEDS: aspirin 325mg tablet, delayed-release (Ecotrin) PO SCH (08:24)
[2022-01-08] MEDS ORDERED: PERFLUTREN PROTEIN-A MICROSPHR (Optison) 0.22 MG/ML 3ML VIAL IV ONE (08:40)
--- NOTE | 2022-01-08 10:18 | NUR ---
SHOP STEWARD STATES THAT PATIENT IS TOO BIG TO FIT IN MRI MACHINE. MESSAGE SENT TO DR. WINSTON TO INFORM OF THIS SITUATION. ER BED #11BHAKTA. PATIENT IS TOO BIG FOR MRI (PER SHOP STEWARD). QUESTIONS, CALL GERARDO PALMA AT [phone]
--- NOTE | 2022-01-08 10:50 | NUR ---
spoke with appraisal technician, informed her that dr. cheng would like them to try and get the MRI done. mri form given to pt, informed of plan. verbalized understanding.
--- NOTE | 2022-01-08 11:05 | NUR ---
daughter requesting information on why patient has not received her home meds since arrival. explained that the hospitalist was paged this morning regarding med rec. will page hospitalist again.
--- NOTE | 2022-01-08 11:45 | NUR ---
pt to mri via wheelchair.
--- NOTE | 2022-01-08 12:02 | NUR ---
paged dr. cheng regarding pt home meds.
--- NOTE | 2022-01-08 12:13 | NUR ---
RETURNED FROM MRI
[2022-01-08] MEDS ORDERED: ondansetron 4mg rapidly disintigrating tab PO PRN (16:30)
[2022-01-08] MEDS: cefTRIAXone 1g/NS 100ml IVPB 100 ML IV SCH (17:08)
[2022-01-08] MEDS: rivaroxaban 20mg tablet PO SCH (18:06)
--- NOTE | 2022-01-08 20:10 | NUR ---
PT PLACED ON HOSPITAL BED FOR COMFORT. CALL LIGHT IN REACH.
[2022-01-08] MEDS: amiodarone 200mg tablet PO SCH (20:37)
[2022-01-08] MEDS: Melatonin 3mg tablet PO SCH (20:38)
[2022-01-08] MEDS: furosemide 20 MG/2 ML vial IV SCH (20:39)
[2022-01-08 23:30] VITALS: BP 127/83
[2022-01-09] VITALS (11 sets, daily range): BP systolic 108–149; BP diastolic 62–87
[2022-01-09 06:38] LABS: BASOPHILS % (AUTO) 0.6 % (0-1); EOSINOPHILS % (AUTO) 0.8 % (0-6); HEMOGLOBIN 13.4 g/dl (12.0-16.0); LYMPHOCYTES # (AUTO) 1.1 X10'3 (1.1-4.8); LYMPHOCYTES % (AUTO) 23.6 % (21-51); MEAN CORPUSCULAR HEMOGLOBIN 31.2 PG (27.0-31.0); MEAN CORPUSCULAR HGB CONC 32.7 g/dL (33.0-36.5); MEAN CORPUSCULAR VOLUME 95.6 FL (78-98); MEAN PLATELET VOLUME 8.9 FL (7.4-10.4); MONOCYTES # (AUTO) 0.5 X10'3 (0-0.9); MONOCYTES % (AUTO) 11.8 % (2-12); NEUTROPHILS # (AUTO) 2.8 X10'3 (1.8-7.7); NEUTROPHILS % (AUTO) 63.2 % (42-75); PLATELET COUNT 192 X10'3 (140-440); RED BLOOD COUNT 4.29 X10'6 (4.20-5.60); RED CELL DISTRIBUTION WIDTH 18.5 % (11.5-14.5); WHITE BLOOD COUNT 4.5 X10'3 (4.5-11.0)
[2022-01-09 06:51] LABS: ALBUMIN 2.6 G/DL (3.4-5.0); ANION GAP 2 (8-16); BLOOD UREA NITROGEN 15 MG/DL (7-18); BUN/CREATININE RATIO 19.7 (6.6-38.0); CALCIUM 8.4 MG/DL (8.5-10.1); CHLORIDE 107 MMOL/L (99-107); CREATININE 0.76 MG/DL (0.40-0.90); GLUCOSE 82 MG/DL (70-104); POTASSIUM 3.4 MMOL/L (3.5-5.1); SODIUM 144 MMOL/L (135-145); TOTAL CARBON DIOXIDE 34.8 MMOL/L (24-32); eGFR 75 ML/MIN
[2022-01-09] MEDS: aspirin 325mg tablet, delayed-release (Ecotrin) PO SCH (08:25)
[2022-01-09] MEDS: furosemide 20 MG/2 ML vial IV SCH ×2 (08:25→20:16)
[2022-01-09] MEDS: cefTRIAXone 1g/NS 100ml IVPB 100 ML IV SCH (08:25)
[2022-01-09] MEDS: docusate sod 100mg capsule PO SCH ×2 (08:26→20:16)
[2022-01-09] MEDS: atorvastatin 20mg tablet PO SCH (08:26)
[2022-01-09] MEDS: FLUoxetine 20mg capsule PO SCH (08:26)
[2022-01-09] MEDS: chloestyramine/aspartame 4gm packet PO SCH (08:26)
[2022-01-09] MEDS: amiodarone 200mg tablet PO SCH ×2 (08:26→20:16)
--- NOTE | 2022-01-09 11:51 | NUR ---
Pt converted to SR
[2022-01-09] MEDS: rivaroxaban 20mg tablet PO SCH (18:28)
[2022-01-09] MEDS: sacubitril/valsartan 24mg-26mg tablet PO SCH (20:00)
[2022-01-09] MEDS: Melatonin 3mg tablet PO SCH (20:16)
--- NOTE | 2022-01-09 21:26 | NUR ---
Paged Dr. Barbosa about missing medication: "Kami Cho, rm [id number]. Admitted for UTI with plans to be d/c tomorrow. She has Entresto scheduled this evening as a medication from home but she does not have the medication with her and it was never [facility]. -Kisha CARRILLO" Pending response Addendum: 01/09/22 at 2142 by Kisha Anderson RN Spoke with Dr. Barbosa on the phone. Dr. Barbosa states that the pt can restart Enresto at home after discharge. Pt is clinically stable.
[2022-01-10 02:00] VITALS: BP 128/83
[2022-01-10 06:44] LABS: BASOPHILS % (AUTO) 0.4 % (0-1); EOSINOPHILS # (AUTO) 0.1 X10'3 (0-0.9); EOSINOPHILS % (AUTO) 1.2 % (0-6); HEMATOCRIT 37.5 % (35.0-45.0); HEMOGLOBIN 12.3 g/dl (12.0-16.0); LYMPHOCYTES # (AUTO) 1.1 X10'3 (1.1-4.8); LYMPHOCYTES % (AUTO) 21.4 % (21-51); MEAN CORPUSCULAR HEMOGLOBIN 31.5 PG (27.0-31.0); MEAN CORPUSCULAR HGB CONC 32.8 g/dL (33.0-36.5); MEAN CORPUSCULAR VOLUME 95.9 FL (78-98); MEAN PLATELET VOLUME 8.8 FL (7.4-10.4); MONOCYTES # (AUTO) 0.7 X10'3 (0-0.9); MONOCYTES % (AUTO) 13.7 % (2-12); NEUTROPHILS # (AUTO) 3.1 X10'3 (1.8-7.7); NEUTROPHILS % (AUTO) 63.3 % (42-75); PLATELET COUNT 180 X10'3 (140-440); RED BLOOD COUNT 3.91 X10'6 (4.20-5.60); RED CELL DISTRIBUTION WIDTH 18.3 % (11.5-14.5); WHITE BLOOD COUNT 4.9 X10'3 (4.5-11.0)
[2022-01-10 07:00] VITALS: BP 111/61
[2022-01-10 07:01] LABS: ALBUMIN 2.5 G/DL (3.4-5.0); ANION GAP 2 (8-16); BLOOD UREA NITROGEN 12 MG/DL (7-18); BUN/CREATININE RATIO 16.7 (6.6-38.0); CALCIUM 8.1 MG/DL (8.5-10.1); CHLORIDE 105 MMOL/L (99-107); CREATININE 0.72 MG/DL (0.40-0.90); GLUCOSE 85 MG/DL (70-104); POTASSIUM 3.2 MMOL/L (3.5-5.1); SODIUM 140 MMOL/L (135-145); TOTAL CARBON DIOXIDE 33.4 MMOL/L (24-32); eGFR 80 ML/MIN
[2022-01-10] MEDS: sacubitril/valsartan 24mg-26mg tablet PO SCH (07:19)
[2022-01-10] MEDS ORDERED: metoprolol tartrate 50mg tablet PO SCH ×2 (08:00)
[2022-01-10] MEDS: amiodarone 200mg tablet PO SCH (08:39)
[2022-01-10] MEDS: chloestyramine/aspartame 4gm packet PO SCH (08:39)
[2022-01-10] MEDS: FLUoxetine 20mg capsule PO SCH (08:39)
[2022-01-10] MEDS: cefTRIAXone 1g/NS 100ml IVPB 100 ML IV SCH (08:39)
[2022-01-10] MEDS: atorvastatin 20mg tablet PO SCH (08:39)
[2022-01-10] MEDS: aspirin 325mg tablet, delayed-release (Ecotrin) PO SCH (08:39)
[2022-01-10 08:40] VITALS: BP_SYST 111
[2022-01-10] MEDS: furosemide 20 MG/2 ML vial IV SCH (08:40)
[2022-01-10] MEDS: docusate sod 100mg capsule PO SCH (08:40)
[2022-01-10] MEDS ORDERED: CEFD300C3 PO (10:02)
--- NOTE | 2022-01-10 12:00 | NUR ---
Patient discharged. IV and tele box removed and tele box returned to tele monitor. Pt was assisted in getting ready with aides. Discharge instructions reviewed with daughter and patient. Patient and daughter verbal understanding and asks questions about the plan of care and the new medication reviewed. Patient signed the paperwork and patient was escorted downstairs via wheelchair to be driven home with daughter.
--- NOTE | 2022-01-10 13:02 | NUR ---
Patient in room PCU 3017. I have received report from Kisha CARRILLO and had the opportunity to ask questions and assume patient care.
[2022-01-17] MEDS ORDERED: IBUP1TAB11 PO (16:03)
[2022-01-17] MEDS ORDERED: SPIR25TA5 PO (16:03)
[2022-01-18] MEDS ORDERED: PANT40TA54 PO (12:44)
[2022-01-18] MEDS ORDERED: LEVO50TA8 PO (16:22)
[2022-01-18] MEDS ORDERED: METO-395 PO (16:22)
== END 2022-01-10 12:05 | disposition home health service (06) | DRG 689 ==
LOC: ER 13:05 → ED HOLD 21:49 → PCU 3S 01-08 23:00
PROVIDERS: ADMIT Internal Medicine; ATTEND Family Medicine
DX: N39.0 Urinary tract infection, site not specified (principal); G93.41 Metabolic encephalopathy; I50.23 Acute on chronic systolic (congestive) heart failure; R47.01 Aphasia; Z68.41 Body mass index [BMI] 40.0-44.9, adult; E78.00 Pure hypercholesterolemia, unspecified; B96.20 Unspecified Escherichia coli [E. coli] as the cause of diseases classified elsewhere; E78.5 Hyperlipidemia, unspecified; I11.0 Hypertensive heart disease with heart failure; I48.0 Paroxysmal atrial fibrillation; Z96.649 Presence of unspecified artificial hip joint; R63.4 Abnormal weight loss; E66.01 Morbid (severe) obesity due to excess calories; Z72.0 Tobacco use; Z72.89 Other problems related to lifestyle
CPT/HCPCS: 36415; 70450; 70496; 70498; 70551; 71045; 72131; 80048; 80053; 80061; 80305; 81001; 82140; 84484; 85025; 85610; 87077; 87081; 87088; 87186; 93005; 93308; 99285; G0378; J0696; J1940; Q9967

== ENCOUNTER 2022-09-25 01:01 | Emergency (ER) | payer MEDICARE, OTHER ==
[~2022-09-25] VITALS: Ht 170.2 cm; Wt 115.0 kg
[~2022-09-25 01:01] MED LIST changes: -CEPH250T PO; +IBUP1TAB11 PO; +LEVO50TA8 PO; -LOP12.5T PO; -LOPE2CAP PO; -MELA3TAB70 PO; +METO-395 PO; +PANT40TA54 PO; -QUELT PO; +SPIR25TA5 PO
[2022-09-25 01:48] LABS: CLARITY,URINE CLOUDY (Clear); COLOR,URINE YELLOW (Yellow); GLUCOSE, URINE NEGATIVE (Neg); KETONES,URINE NEGATIVE (Neg); LEUKOCYTE ESTERASE ,URINE TRACE (Neg); NITRITES, URINE NEGATIVE (Neg); OCCULT BLOOD,URINE TRACE-INTACT (Neg); PROTEIN,URINE NEGATIVE (Neg)
[2022-09-25 02:01] LABS: UA COLLECTION TYPE CLN CATCH MIDSTREAM
[2022-09-25 02:02] LABS: BACTERIA,URINE 4+ /HPF (Neg); MUCUS STRANDS FEW /LPF (Neg); RBC,URINE 0-2 /HPF (0-2); SQUAMOUS EPITHELIAL CELL,UR FEW /LPF (FEW)
[2022-09-25 02:03] LABS: TRANSITIONAL EPI CELLS,URINE FEW /HPF
[2022-09-25] MEDS ORDERED: ketorolac tromethamine 15mg/ml inj. IV ONE ×2 (03:45→08:10)
[2022-09-25] MEDS ORDERED: normal saline 1000ML IV soln IVB ONE (03:45)
[2022-09-25] MEDS ORDERED: fentaNYL/PF 50MCG/1 ML 2ML syringe IV ONE ×2 (03:45→05:45)
[2022-09-25 04:18] LABS: BASOPHILS # (AUTO) 0.1 X10'3 (0-0.2); EOSINOPHILS # (AUTO) 0.1 X10'3 (0-0.9); EOSINOPHILS % (AUTO) 1.3 % (0-6); HEMATOCRIT 39.1 % (35.0-45.0); HEMOGLOBIN 12.5 g/dl (12.0-16.0); LYMPHOCYTES # (AUTO) 1.1 X10'3 (1.1-4.8); MEAN CORPUSCULAR HEMOGLOBIN 28.5 PG (27.0-31.0); MEAN CORPUSCULAR HGB CONC 31.9 g/dL (33.0-36.5); MEAN CORPUSCULAR VOLUME 89.5 FL (78-98); MEAN PLATELET VOLUME 8.5 FL (7.4-10.4); MONOCYTES # (AUTO) 0.6 X10'3 (0-0.9); NEUTROPHILS % (AUTO) 68.7 % (42-75); PLATELET COUNT 231 X10'3 (140-440); RED BLOOD COUNT 4.37 X10'6 (4.20-5.60); RED CELL DISTRIBUTION WIDTH 15.9 % (11.5-14.5); WHITE BLOOD COUNT 5.8 X10'3 (4.5-11.0)
[2022-09-25] MEDS: normal saline 1000ml 1,000 ML IV ONE ×2 (04:30→06:00)
[2022-09-25 04:32] LABS: ALANINE AMINOTRANSFERASE 36 U/L (12-78); ALBUMIN 2.2 G/DL (3.4-5.0); ALBUMIN/GLOBULIN RATIO 0.5 (1.1-1.5); ALKALINE PHOSPHATASE 421 IU/L (46-116); ANION GAP 8 (8-16); ASPARTATE AMINO TRANSFERASE 66 U/L (10-37); BILIRUBIN,TOTAL 0.7 MG/DL (0.1-1.0); BLOOD UREA NITROGEN 7 MG/DL (7-18); BUN/CREATININE RATIO 10.4 (6.6-38.0); CALCIUM 8.6 MG/DL (8.5-10.1); CHLORIDE 105 MMOL/L (99-107); CREATININE 0.67 MG/DL (0.40-0.90); GLUCOSE 89 MG/DL (70-104); POTASSIUM 3.6 MMOL/L (3.5-5.1); SODIUM 141 MMOL/L (135-145); TOTAL CARBON DIOXIDE 27.9 MMOL/L (24-32); TOTAL PROTEIN 6.4 G/DL (6.4-8.2); eGFR 87 ML/MIN
[2022-09-25] MEDS ORDERED: CefTRIAXone/D5W-Rocephin 1gm 50 ML IV ONE (05:05)
[2022-09-25] MEDS ORDERED: iohexol 350MG/ML 100ml bottle IV ONE (05:27)
[2022-09-25] MEDS ORDERED: morphine 4 MG/ML inj SYRINge IV ONE (08:10)
[2022-09-25] MEDS ORDERED: ondansetron/PF 4mg/2ml inj IV ONE (08:10)
[2022-09-25] MEDS ORDERED: [UNRECOGNIZED DRUG - CODE] PO (11:33)
[2022-09-25] MEDS ORDERED: HYDR-3965 PO (11:33)
[2022-09-25] MEDS ORDERED: FOSF3PAC PO (11:51)
[2022-09-25 12:20] VITALS: BP 125/68
== END 2022-09-25 12:49 | disposition home or self-care (01) ==
LOC: ER 01:02
DX: M48.56XA Collapsed vertebra, not elsewhere classified, lumbar region, initial encounter for fracture (principal); M54.50 Low back pain, unspecified; E78.00 Pure hypercholesterolemia, unspecified; I10 Essential (primary) hypertension; F32.9 Major depressive disorder, single episode, unspecified; I50.9 Heart failure, unspecified; Z72.89 Other problems related to lifestyle; Z79.899 Other long term (current) drug therapy; X58.XXXA Exposure to other specified factors, initial encounter; Y93.89 Activity, other specified; Y92.488 Other paved roadways as the place of occurrence of the external cause; Y99.8 Other external cause status
CPT/HCPCS: 36415; 71260; 72131; 74177; 80053; 81001; 85025; 87077; 87088; 87186; 96361; 96365; 96375; 96376; 99285; J0696; J1885; J2270; J2405; J3010; J3490; J7030; Q9967